=== PATIENT | male | born 1985 | race Caucasian/White ===

== ENCOUNTER 2024-02-19 15:23 | Emergency (ER) | payer OTHER ==
[~2024-02-19] VITALS: Ht 172.7 cm; Wt 73.0 kg
[2024-02-19 15:27] VITALS: O2SAT 97
[2024-02-19 16:12] LABS: CHLORIDE 106 mEq/L (98-107); POTASSIUM 3.3 mEq/L (3.5-5.1); SODIUM 139 mEq/L (136-145)
[2024-02-19 16:13] LABS: BASOPHILS % 0.3 % (0.0-2.0); CARBON DIOXIDE 21 mEq/L (21-32); EOSINOPHILS % 1.9 % (0.0-5.0); HEMATOCRIT. 42.4 % (42.0-52.0); HEMOGLOBIN. 13.7 g/dL (14.0-18.0); LYMPHOCYTES % 10.4 % (20.0-50.0); MEAN CORPUSCULAR HEMOGLOBIN 28.5 pg (28.0-32.0); MEAN CORPUSCULAR HGB CONC 32.4 g/dL (31.0-37.0); MEAN CORPUSCULAR VOLUME 87.9 fL (80.0-94.0); MEAN PLATELET VOLUME 8.3 fl (7.4-10.4); MONOCYTES % 6.1 % (2.0-8.0); NEUTROPHILS % 81.3 % (40.0-76.0); PLATELET 255 x1000/uL (130-400); RED BLOOD CELL COUNT 4.83 mill/uL (4.7-6.1); RED CELL DISTRIBUTION WIDTH 13.3 % (11.6-14.6); WHITE BLOOD COUNT 14.7 x1000/uL (4.5-11.0)
[2024-02-19 16:14] LABS: CALCIUM 8.9 mg/dL (8.7-10.4)
[2024-02-19 16:16] LABS: PROTHROMBIN TIME 10.8 sec (9.6-11.0)
[2024-02-19 16:18] LABS: CREATININE 1.7 mg/dL (0.6-1.3); GLUCOSE 109 mg/dL (70-105)
[2024-02-19 16:19] LABS: TROPONIN I HIGH SENSITIVITY 4 ng/L (3.0-53); UREA NITROGEN BLOOD 20 mg/dL (9-23)
[2024-02-19] MEDS: SODIUM CHLORIDE 0.9% 1,000 ML IV ONE (17:08)
[2024-02-19 18:38] VITALS: BP 105/63; PULSE 115; RESP 18; TEMP 36.66960; O2SAT 97
== END 2024-02-19 18:47 | disposition left against medical advice (07) ==
LOC: ER 15:23 → EDBEDREQ 18:15 → EDBEDREQTM 18:15 → ER 18:47
DX: R55 Syncope and collapse (principal); N17.9 Acute kidney failure, unspecified; E11.9 Type 2 diabetes mellitus without complications
CPT/HCPCS: 80048; 83880; 85025; 85610; 85730; 84484; 36415; 71045; 93005; 96360; 99291; J7030; Z7610